=== PATIENT | male | born 1945 ===

== ENCOUNTER 2016-11-13 12:09 | Day surgery (SDC) | payer MEDICARE ==
[~2016-11-13] VITALS: Ht 182.9 cm; Wt 88.5 kg
[~2016-11-13 12:09] MED LIST: 0.9% Sodium Chloride 1,000 ML IV SCH; AMLO2.5T PO; LOSA25TA21 PO; Sodium Chloride LOK Flush 10 mL Syringe IV PRN; fentaNYL-PF 50 mCg/mL 2 mL Inj IVPUSH PRN
[2016-11-13 12:58] VITALS: BP 150/85; PULSE 76; RESP 14; O2SAT 95
--- NOTE | 2016-11-13 14:18 | PCM.ENDCOL ---
Colonoscopy Date of Service: Nov 13, 2016 Physician Logan Price MD Pre Procedure Diagnosis: Screening blood in the stools Post Procedure Dx & Findings: Multiple polyps diverticulosis hemorrhoids Procedure Colonoscopy PROCEDURE IN DETAIL: Prep adequate After unremarkable rectal examination the Olympus video colonoscope was inserted patient's anal canal and was advanced to cecum. Landmarks were identified including the ileocecal valve and appendiceal orifice. Scope was withdrawn systematically. Visualized colonic mucosa showed healthy shiny mucosa with normal healthy-appearing vasculature. In the cecum, there were 2 polyps which were 2-3 mm in size. These were resected using cold snare. However in the cecum there were 2 polyps one was about 5 cm in size the other one was about 1.5 cm in size. These were not resected. In the ascending colon there were 4 polyps 3-5 mm in size. All resected completely using cold snare. There was also a 1.5 cm polyp that was left there as well. In the transverse colon there were total of 6 polyps. There were 2 polyps that were left flat ones both were about 2-4 cm in size. These are again left. The other 4 polyps were about 2-3 mm in size which were all resected completely using cold snare. Sigmoid colon had few diverticulosis. In the rectum retroflexion was done which showed hemorrhoids. Anal canal was inspected carefully on the way out and hemorrhoids noted. Impression Multiple polyps. The largest one were left. Hemorrhoids Recommendation Repeat colonoscopy through 6 month at the [facility] Diverticular diet Presedation Assessment Risks and Benefits Informed consent was obtained from the patient after all risks and benefits including but not limited to drug reaction, infection, pain, bleeding, perforation, as well as alternatives were discussed. Patient monitoring Continuous pulse oximetry, cardiac monitoring, blood pressure monitoring, IV access, and oxygen at 2L per nasal cannula. Periprocedural Fentanyl: Fentanyl 100mcg Incrementally Midazolam: Midazolam 5mg Incrementally Complications There were no periprocedural complications identified. Post Procedure Plan Post Procedure Recommendations 1. Restrict activities today. 2. Resume normal activities in the morning. 3. Resume medications. 4. Patient informed of normal post procedure side effects as bloating, drowsiness, blood streaking in the stool. 5. average risk CRCS. If colon polyps come back as: -Hyperplastic- can repeat colonoscopy in 10 years -Tubular adenoma- repeat colonoscopy in 5 years -Tubulovillous/villous adenoma- repeat colonoscopy in 3 years -If any dysplasia- return to clinic as soon as possible 6. Please don't hesitate to call me with any questions. Logan Price MD Nov 13, 2016 14:18
[2016-11-13 14:20] VITALS: BP 121/75; PULSE 69; RESP 16; O2SAT 96
[2016-11-13 14:30] VITALS: BP 134/76; PULSE 82; RESP 16; O2SAT 97
[2016-11-13 14:40] VITALS: BP 134/76; PULSE 71; RESP 16; O2SAT 96
--- NOTE | 2016-11-17 14:32 | PATH ---
SURGICAL PATHOLOGY Attending Physician:Logan Price M.D. CASE STATUS: Signed Out PATIENT NAME: HARMONY MORAN PID: [id number] : 1945 DATE COLLECTED:11/13/2016 00:00 SPECIMEN: 1: Colon, Polyp 2: Colon, Polyp CLINICAL HISTORY: 1). RIGHT COLON POLYPS X5 2). TRANSVERSE POLYPS X6 FINAL DIAGNOSIS: 1.RIGHT COLON POLYPS: TUBULAR ADENOMAS (5). 2.TRANSVERSE COLON POLYPS: TUBULAR ADENOMAS (6). ICD10 D12.6 GROSS DESCRIPTION: The specimens are received in formalin, labeled with the patient's name and sublabeled as the following: (1) R colon; (2) transv. (1) The specimen consists of multiple antonio-yellow, glistening, rubbery, semi-translucent sessile polyps (1.9 x 0.7 x 0.3 cm in aggregate, ranging 0.1 x 0.1 x 0.1 cm-0.9 x 0.3 x 0.2 cm). Section code: (1A) multiple intact polyps; (1B) largest polyp, bisected. Specimen entirely submitted. (2) The specimen consists of multiple antonio-yellow, glistening, rubbery sessile polyps (2.5 x 0.9 x 0.4 cm in aggregate, ranging 0.2 x 0.1 by less than 0.1 cm-0.4 x 0.3 x 0.3 cm). Section code: (2A) multiple intact polyps. Specimen entirely submitted. ([id number]) MICRO DESCRIPTION: See diagnosis. ICD-9 CODES: CPT CODES: 1: 37228 2: 96418 Electronically Signed Out Finn Mckenzie MD [facility] Pathology [facility] [address], [place] [address] Technical component performed at [facility], [facility] [address], [place], [address]
== END 2016-11-13 23:59 | disposition home or self-care (01) ==
LOC: END 12:09
PROVIDERS: ATTEND Internal Medicine
DX: D12.3 Benign neoplasm of transverse colon (principal); D12.0 Benign neoplasm of cecum; D12.2 Benign neoplasm of ascending colon; K57.30 Diverticulosis of large intestine without perforation or abscess without bleeding; K64.9 Unspecified hemorrhoids; K92.1 Melena; I10 Essential (primary) hypertension
CPT/HCPCS: 45385; 88305; 99153; G0500; J2250; J3010; J7030